=== PATIENT | female | born 1965 | race Caucasian/White ===

== ENCOUNTER 2019-05-01 15:31 | Emergency (ER) | payer BC ==
[~2019-05-01] VITALS: Ht 167.6 cm; Wt 66.7 kg
[2019-05-01] MEDS ORDERED: LEVO125T PO (15:50)
[2019-05-01] MEDS ORDERED: ACETAMINOPHEN ES 500 MG TABLET PO ONE (17:15)
--- NOTE | 2019-05-01 17:22 | NUR ---
Patient discharged to home in stable conditon. Written and verbal after care instructions given. Patient verbalizes understanding of instructions.
[2019-05-01] MEDS ORDERED: ACETAMINOPHEN ES 500 MG TABLET ONE (17:23)
== END 2019-05-01 17:26 | disposition home or self-care (01) ==
LOC: ER 15:34
DX: S62.002A Unspecified fracture of navicular [scaphoid] bone of left wrist, initial encounter for closed fracture (principal); Z86.73 Personal history of transient ischemic attack (TIA), and cerebral infarction without residual deficits; Z79.899 Other long term (current) drug therapy; X58.XXXA Exposure to other specified factors, initial encounter; Y93.89 Activity, other specified; Y92.89 Other specified places as the place of occurrence of the external cause; Y99.8 Other external cause status
CPT/HCPCS: 73110; A4663; A9150